=== PATIENT | female | born 1995 | race Caucasian/White ===

== ENCOUNTER 2017-11-19 17:41 | Emergency (ER) | payer MEDICAID, OTHER ==
[2017-11-19 17:59] VITALS: BMI 23.4
[2017-11-19 18:01] VITALS: BP 108/78; PULSE 100; RESP 16; TEMP 98.6; O2SAT 100
--- NOTE | 2017-11-19 18:04 | C.PDOC ---
History Of Present Illness RECUR SORE THROAT X 1 DAY. PS SIM SX IN OCTOBER. LAST FEVER ON 10/29. PS PAIN W SWALLOWING. EXAM NARD NONTOXIC HEENT B/L TONSILAR SWELL NO EXUDATE OR ERYTHEMA. UVULA MIDLINE. MMM NO STRIDOR, DROOLING NECK SUPPLE NO CERV NODES REMAINDER NEG Time Seen by Provider: 11/19/17 18:02 Chief Complaint (Nursing): ENT Problem History Per: Patient History/Exam Limitations: no limitations Onset/Duration Of Symptoms: Days (1) PMH Reviewed: Historical Data, Nursing Documentation, Vital Signs - Family History Family History: States: No Known Family Hx - Immunization History Hx Tetanus Toxoid Vaccination: No Hx Influenza Vaccination: No Hx Pneumococcal Vaccination: No Review Of Systems Except As Marked, All Systems Reviewed And Found Negative. Constitutional: Negative for: Fever, Chills ENT: Positive for: Throat Pain (sore throat) Cardiovascular: Negative for: Chest Pain Respiratory: Negative for: Shortness of Breath Gastrointestinal: Negative for: Vomiting Pedatric Physical Exam - Physical Exam Appears: Non-toxic, No Acute Distress Skin: Warm, Dry Ear(s): Bilateral: Normal Nose: Normal Oral Mucosa: Moist, No Drooling, No Trismus Throat: No Erythema, No Exudate, Other ((+) bilateral tonsilar swelling, uvula midline) Neck: Normal, Normal ROM, Supple Lymphatic: No Adenopathy Respiratory: No Rales, No Stridor Extremity: Normal ROM, No Swelling Neurological/Psych: Oriented x3, Normal Speech, Normal Motor ED Course And Treatment O2 Sat by Pulse Oximetry: 100 (RA) Pulse Ox Interpretation: Normal Medical Decision Making Medical Decision Making: PLAN: * Decadron PO Disposition Counseled Patient/Family Regarding: Diagnosis, Need For Followup - Disposition Referrals: YOUR,PMD [Other] Disposition: HOME/ ROUTINE Disposition Time: 18:03 Condition: IMPROVED Instructions: Pharyngitis (ED) Forms: [facility] (Portuguese) - Clinical Impression Clinical Impression: Sore throat - Scribe Statement The provider has reviewed the documentation as recorded by the Yovaniibe Phuong Boyce Provider Attestation: All medical record entries made by the Scribe were at my direction and personally dictated by me. I have reviewed the chart and agree that the record accurately reflects my personal performance of the history, physical exam, medical decision making, and the department course for this patient. I have also personally directed, reviewed, and agree with the discharge instructions and disposition.
== END 2017-11-19 18:22 | disposition home or self-care (01) ==
LOC: C.ER 17:41
DX: J02.9 Acute pharyngitis, unspecified (principal)
CPT/HCPCS: 99282; J8540

== ENCOUNTER 2018-08-18 10:44 | Emergency (ER) | payer MEDICAID ==
[2018-08-18 10:52] VITALS: BMI 24.6
[2018-08-18 10:53] VITALS: BP 132/94; PULSE 100; RESP 20; TEMP 97.6; O2SAT 97
--- NOTE | 2018-08-18 11:18 | C.PDOC ---
History Of Present Illness 23 years old female presents to ED for complaints of generalized rash associated with exacerbating itch from eczema that began 1-2 weeks ago. Patient reports symptoms were initial onset of left thigh, started in "Small Patches" and eczema is now generalized. Patient states she saw a market investigator for same complaints and was advised to continue Zytec but she has already been taking that continuously for 2 years. Denies any other physical complaints. GEN RASH, ITCH ECZEMA EXACERBATION X 1-2 WEEKS. INITIAL ONSET L THIGH "SMALL PATC" ECZEMA NOW GENERALIZED. +GEN ITCH. PS SAW SANDER AND BUFFER FOR SAME, WAS ADVISED TO CONTINUE ZYTEC BUT PS HAS BEEN TAKING THAT CONTINUOUSLY FOR 2 YRS. NO OTHER ASSOC SX EXAM NAD SKIN +GEN MULTIPLE ECZEMA LESIONS W OCC EXCORIATION. NO CELLULITIS Chief Complaint (Nursing): Abnormal Skin Integrity History Per: Patient History/Exam Limitations: no limitations Onset/Duration Of Symptoms: Days, Sudden Onset Current Symptoms Are (Timing): Still Present Location Of Injury: Left: Thigh Quality Of Symptoms: Itching Recent travel outside of the [place]: No Past Medical History Reviewed: Historical Data, Nursing Documentation, Vital Signs Vital Signs: Last Vital Signs Temp 97.6 F 08/18/18 10:50 Pulse 100 H 08/18/18 10:50 Resp 20 08/18/18 10:50 BP 132/94 H 08/18/18 10:50 Pulse Ox 97 08/18/18 10:50 - Medical History PMH: No Chronic Diseases Surgical History: No Surg Hx Family History: States: No Known Family Hx - Social History Hx Tobacco Use: No Hx Alcohol Use: No Hx Substance Use: No - Immunization History Hx Tetanus Toxoid Vaccination: No Hx Influenza Vaccination: No Hx Pneumococcal Vaccination: No Review Of Systems Except As Marked, All Systems Reviewed And Found Negative. Skin: Positive for: Rash Physical Exam - Physical Exam Appears: Non-toxic, No Acute Distress Skin: Warm, Dry, Rash (POSITIVE GENERALIZED MULTIPLE ECZEMA LESIONS W OCC EXCORIATION. NO CELLULITIS) Head: Atraumatic, Normacephalic Eye(s): bilateral: Normal Inspection, PERRL, EOMI Oral Mucosa: Moist Neck: Supple Chest: Symmetrical, No Tenderness Cardiovascular: Rhythm Regular, No Murmur Respiratory: Normal Breath Sounds, No Rales, No Rhonchi, No Wheezing, Other (NARD) Gastrointestinal/Abdominal: Bowel Sounds (Active ), Soft, No Tenderness Extremity: Normal ROM, No Swelling Extremity: Bilateral: Atraumatic, Normal Color And Temperature, Normal ROM Pulses: Left Radial: Normal, Right Radial: Normal Neurological/Psych: Oriented x3, Normal Speech, Other (No focal deficits ) Gait: Steady ED Course And Treatment O2 Sat by Pulse Oximetry: 97 (RA) Pulse Ox Interpretation: Normal Disposition Counseled Patient/Family Regarding: Diagnosis, Need For Followup, Rx Given - Disposition Referrals: YOUR,SANDER AND BUFFER [Other] Disposition: HOME/ ROUTINE Disposition Time: 11:18 Condition: GOOD Additional Instructions: CONSIDER USE OF OVER THE COUNTER ECZEMA CREAMS SUCH EUCERIN Prescriptions: DiphenhydrAMINE [Benadryl] 25 mg PO TID PRN #30 cap PRN Reason: Itching / Pruritus predniSONE [Prednisone] 60 mg PO DAILY #15 tab Instructions: Eczema (Atopic Dermatitis) (DC) Forms: [facility] [facility] (Cuban) - Clinical Impression Clinical Impression: Eczema - Scribe Statement The provider has reviewed the documentation as recorded by the Yovaniibsaskia Kilpatrick All medical record entries made by the Scribe were at my direction and personally dictated by me. I have reviewed the chart and agree that the record accurately reflects my personal performance of the history, physical exam, medical decision making, and the department course for this patient. I have also personally directed, reviewed, and agree with the discharge instructions and disposition.sully
== END 2018-08-18 11:25 | disposition home or self-care (01) ==
LOC: C.ER 10:44
DX: L30.9 Dermatitis, unspecified (principal)